=== PATIENT | male | born 1985 | race African-American/Black ===

== ENCOUNTER 2022-07-15 02:07 | Emergency (ER) | payer OTHER ==
[~2022-07-15] VITALS: Ht 177.8 cm; Wt 72.6 kg
[2022-07-15 02:14] VITALS: BP 146/70
--- NOTE | 2022-07-15 02:35 | NUR ---
PT CLEARED BY HUSAM HORTA FOR BOOKING
== END 2022-07-15 02:37 ==
LOC: ER 02:18
DX: M79.642 Pain in left hand (principal); Z60.2 Problems related to living alone